=== PATIENT | female | born 1985 | race American Indian/Alaskan Native ===

== ENCOUNTER 2019-09-28 15:26 | Emergency (ER) | payer OTHER ==
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
[2019-09-28 18:43] VITALS: BP 120/70
== END 2019-09-28 18:35 | disposition left against medical advice (07) ==
LOC: ED 15:26
DX: N64.89 Other specified disorders of breast (principal); N64.4 Mastodynia; F17.200 Nicotine dependence, unspecified, uncomplicated

== ENCOUNTER 2022-02-16 03:40 | Emergency (ER) | payer BC ==
[2022-02-16 03:59] VITALS: BP 165/94
== END 2022-02-16 09:00 | disposition left against medical advice (07) ==
LOC: ED 03:40
DX: K08.89 Other specified disorders of teeth and supporting structures (principal); Z53.21 Procedure and treatment not carried out due to patient leaving prior to being seen by health care provider